=== PATIENT | male | born 1995 | race Caucasian/White ===

== ENCOUNTER 2017-12-20 08:41 | Outpatient (CLI) | payer BC ==
[2017-12-20 09:16] LABS: MEAN CORPUSCULAR HEMOGLOBIN 30.5 pg (28.0-34.0); MEAN CORPUSCULAR VOLUME 91.6 fl (80.0-100.0)
[2017-12-20 09:38] LABS: eGFR (African) > 60; eGFR (Non-African) > 60
== END 2017-12-20 08:42 ==
LOC: LAB 08:41
PROVIDERS: ATTEND Family Medicine
DX: R03.0 Elevated blood-pressure reading, without diagnosis of hypertension (principal)
CPT/HCPCS: 36415; 80048; 85027